=== PATIENT | male | born 1950 | race Caucasian/White ===

== ENCOUNTER → 2018-11-24 14:25 | Outpatient (CLI) | payer MEDICARE, OTHER, SELFPAY ==
--- NOTE | 2018-11-24 14:40 | RAD_ITS ---
STUDY: X-RAY CHEST REASON FOR EXAM: Male, 68 years old. Preop for rotator cuff surgery TECHNIQUE: PA and lateral views of the chest. COMPARISON: None. FINDINGS: The lungs are clear and expanded. There is no demonstrated pleural abnormality. Normal size heart. Normal mediastinum and marianna. Normal visualized pulmonary arteries. There is atherosclerotic tortuosity of the aortic arch and descending thoracic aorta. Normal visualized thoracic spine. Normal visualized ribs, clavicles, and shoulders. There is no demonstrated abnormality of the visualized soft tissue structures of the upper abdomen. RAD/Chest PA and Lateral IMPRESSION: No acute cardiopulmonary process. Electronically Signed: Spenser Harper MD at 11:33 EST , Service support ,
--- NOTE | 2018-11-24 14:43 | EKG12_ITS ---
Test Reason : PRE OP Blood Pressure : / mmHG Vent. Rate : 072 BPM Atrial Rate : 072 BPM P-R Int : 174 ms QRS Dur : 082 ms QT Int : 370 ms P-R-T Axes : 069 077 080 degrees QTc Int : 405 ms Normal sinus rhythm ST abnormality, possible digitalis effect Abnormal ECG When compared with ECG of 26-JUL-2009 17:59, No significant change was found Confirmed by MINAL AKHTAR, FUAD ([id number]), content editor DEREK PAGAN ([id number] on 11/28/2018 12:57:45 PM Referred By: Avelino Pagan Confirmed By:FUAD FONTAINE MD
== END ==
PROVIDERS: Family Provider Internal Medicine; PCP Internal Medicine; Referring Provider Orthopaedic Surgery; Visit Provider Orthopaedic Surgery
DX: Z01.818 Encounter for other preprocedural examination (principal); F17.200 Nicotine dependence, unspecified, uncomplicated; Z79.899 Other long term (current) drug therapy
CPT/HCPCS: 71046; 93005

== ENCOUNTER → 2019-07-06 09:10 | Outpatient (CLI) | payer MEDICARE, OTHER, SELFPAY ==
[2019-07-06 12:55] LABS: PSA,Total- Diagnostic 0.08 ng/mL (0.0-4.0)
== END ==
DX: C61 Malignant neoplasm of prostate (principal)
CPT/HCPCS: 36415; 84153; G0103

== ENCOUNTER 2019-10-24 18:29 | Emergency (ER) | payer MEDICARE, OTHER, SELFPAY ==
[2019-10-24 18:29] VITALS: BP 141/81; PULSE 79; RESP 16; TEMP 36.6; O2SAT 93; BMI 35.4
[2019-10-24 18:47] VITALS: BMI 35.4
[2019-10-24 18:51] LABS: Bedside Glucose 175 mg/dL (70-110)
[2019-10-24 19:26] LABS: Absolute Lymphocyte Count 1.41 X10^3/uL (0.83-4.51); Absolute Neutrophil Count 3.6 X10^3/uL (2.0-7.7); Basophil# 0.03 X10^3/uL; Basophil% 0.5 % (0-1); Eosinophil# 0.33 X10^3/uL; Eosinophils% 5.5 % (0-5); Hemoglobin 16.4 g/dL (13.0-16.5); Lymphocyte # 1.41 X10^3/ul (4.0); Lymphocyte % 23.6 % (19-41); Mean Corp Hgb Conc 33.5 g/dL (32-36); Mean Corpuscular Hgb 34.3 pg (27.0-32.0); Mean Corpuscular Volume 102.5 fL (80-94); Monocyte# 0.62 X10^3/uL; Monocyte% 10.4 % (0-10); NRBC Flagged by Analyzer 0.3 % (0-5); Neutrophil # 3.56 X10^3/uL (2.7-7.7); Neutrophil % 59.7 % (47-70); Platelet Count 144 K/mm3 (150-450); RBC Distribution Width CV 12.6 % (11.6-14.6); RBC Distribution Width SD 47.8 fl (35.1-43.9); Red Blood Count 4.78 M/mm3 (4.6-6.2)
--- NOTE | 2019-10-24 19:40 | RAD_ITS ---
STUDY: X-RAY CHEST REASON FOR EXAM: Male, 69 years old. COUGHING WITH DIFFICULTY SWALLOWING X 1 MONTH TECHNIQUE: PA and lateral views of the chest. COMPARISON: Previous study of 11/24/2018 FINDINGS: There is fullness of the infrahilar region on the lateral view. There is no demonstrated pleural abnormality. Normal size heart. Normal mediastinum and marianna. Normal visualized pulmonary arteries. There are calcified plaques of the aortic arch. Normal visualized thoracic spine. Normal visualized ribs, clavicles, and shoulders. There is no demonstrated abnormality of the visualized soft tissue structures of the upper abdomen. RAD/Chest PA and Lateral IMPRESSION: There is fullness of the infrahilar region on the lateral projection, new in the interval. Calcified plaques of the aortic arch. CT of the thorax with intravenous contrast is recommended for further evaluation at this time. Electronically Signed: Kilo Joshua MD at 20:02 EST , Service support ,
[2019-10-24 19:43] LABS: ALB/GLOB Ratio 0.9 RATIO (0.9-2.4); AST(SGOT) 41 U/L (15-37); Alanine Aminotransfer ALT/SGPT 89 U/L (16-61); Albumin, Serum 3.2 g/dL (3.2-5.0); Alkaline Phosphatase 78 U/L (45-117); Anion Gap 4 (5-15); BUN 19 mg/dL (7-18); BUN/Creat Ratio 14.4 RATIO (10-20); Calcium,Total 8.9 mg/dL (8.5-10.1); Chloride 108 mmol/L (98-107); Creatinine, Serum 1.32 mg/dL (0.70-1.30); EST Glomerular Filtration Rate 57 mL/min (>60); Est Glom Filt Rate - Afr Amer 69 mL/min (>60); Estimated Creatinine Clearance 58.85 ml/min; Globulin 3.6 g/dL (2.2-4.2); Glucose 152 mg/dL (74-106); Potassium 3.9 mmol/L (3.5-5.1); Protein, Total 6.8 g/dL (6.4-8.2); Sodium Level 141 mmol/L (136-145)
--- NOTE | 2019-10-24 19:44 | ED.DCSUM_ITS ---
History of Present Illness Chief Complaint: Neuro S/Sx Detail of Chief Complaint: Abnormal movement of arms and legs during choking episode Informant: Patient, Significant Other Onset: Weeks Context: Sudden Onset Timing: Intermittent Quality: Episode of choking 2 to 3 weeks ago and today Location: Residence Current Severity: - - Symptoms resolved Maximum Severity: Moderate Worsened by: No history of TIA or CVA no change in voice Relieved by: Nothing Associated Symptoms: No associated symptoms Narrative: Patient is an elderly male with history of hypercholesterolemia who presents with choking episode 2 to 3 weeks ago and today. There is no history of TIA or CVA. He denies headache. He denies visual, ocular auditory symptoms. He denies neck pain or neck stiffness. He denies cardiac respiratory symptoms. W hector states last evening he had coughing and complained of shortness of breath. believes he has had more episodes than he is admitting to. He denies paresthesia, anesthesia or motor weakness. He denies problems with balance. Prior similar symptoms: No Recent Illness/Hospitalization: No - Past Medical History (1) Hypercholesterolemia Status: Acute Past Medical History - Allergies and Home Meds Allergies/Adverse Reactions: Allergies No Known Allergies Allergy (Verified 10/24/19 18:33) Primary Care Physician: Alvaro Herron MD [Primary Care Provider] - Prior records reviewed: Yes Surgical History: no surgical history Lives: Spouse/ Significant Other Smoking Status: Current every day smoker Alcohol: Rare Drugs: None Review of Systems General: Denies: Chills, Fever, Sweats Eyes: Denies: Visual changes - bilaterally, Blurred Vision - bilaterally, Diplopia ENT: Denies: Bilateral ear pain, Rhinorrhea, Sore throat Cardiovascular: Denies: Chest pain, Palpitations Respiratory: Denies: Dyspnea, Cough, Dyspnea on exertion Gastrointestinal: Denies: Abdominal pain, Nausea, Vomiting, Diarrhea, Melena, Hematochezia Genitourinary: Denies: Dysuria, Hematuria, Frequency Musculoskeletal: Denies: Myalgias, Arthralgias, Neck pain, Back pain, Swelling, Extremity Pain Skin: Denies: Rash, Wounds Neurological: Denies: Headache, Weakness, Parasthesia, Numbness Hematologic: Denies: Easy bruising, Easy bleeding Physical Exam Vital Signs/Narrative: Vital Signs Temp Pulse Resp BP Pulse Ox 10/24/19 18:29 97.8 F 79 16 141/81 H 93 Inital Vital Signs reviewed: Yes General: Well nourished, Well developed, Obese, No Acute Distress Head: Normocephalic, Atraumatic Eyes: Perrl, EOMI. Negative for: Pale conjunctiva, Scleral icterus ENT: Moist mucous membranes, No rhinorrhea, TM's clear, - - Ray is midline. There is no inspiratory expiratory stridor.. Negative for: Nasal congestion Neck: Supple, Nontender Cardiovascular: Regular rate, Regular rhythm, No murmurs, Normal S1, Normal S2 Respiratory: No distress, CTA bilaterally, Chest nontender Abdomen: Soft, Nontender, Nondistended, Normal bowel sounds Back: Nontender, Normal Inspection Extremities: Nontender, No edema Skin: Normal color, No rash Neurological: Alert, Oriented x3, Cranial nerves II-XII grossly intact, Normal Strength, Normal Sensation, Normal DTR, Normal Gait Psychological: Normal affect, Normal Mood Diagnostic/Tx/Re-eval Chest X-Ray - ED: 2 View, Read by Radiologist Impressions Chest X-Ray 10/24/19 19:40 IMPRESSION: There is fullness of the infrahilar region on the lateral projection, new in the interval. Calcified plaques of the aortic arch. CT of the thorax with intravenous contrast is recommended for further evaluation at this time. Electronically Signed: Kilo Joshua MD at 20:02 EST , Service support , Chest CT 10/24/19 20:41 IMPRESSION: 1. Mild emphysematous changes of the upper lobes. Small calcified granuloma in the left upper lobe. 2. Coronary arterial calcified lesions are present. 3. Mild dilatation of the main pulmonary artery measuring up to 3.2 cm. This may be associated with pulmonary hypertension. 4. Aneurysmal dilatation of the thoracic aorta as detailed above. 5. There is no evidence of mass or adenopathy. 6. The visualized esophagus is unremarkable. Endoscopy and/or barium contrast imaging may be helpful if clinically indicated. Electronically Signed: Kilo Joshua MD at 21:28 EST , Service support , 10/24/19 19:40 Chest PA and Lateral [RAD] Stat 10/24/19 20:41 Chest WITH Contrast [CT] Stat Laboratory Results 10/24/19 10/24/19 10/24/19 18:44 19:16 19:16 WBC 6.0 RBC 4.78 Hgb 16.4 Hct 49.0 MCV 102.5 H MCH 34.3 H MCHC 33.5 RDW Std Deviation 47.8 H RDW Coeff of Virgilio 12.6 Plt Count 144 L MPV 10.0 Immature Gran % (Auto) 0.300 Neut % (Auto) 59.7 Lymph % (Auto) 23.6 Cannon % (Auto) 10.4 H Eos % (Auto) 5.5 H Baso % (Auto) 0.5 Absolute Neuts (auto) 3.6 Absolute Lymphs (auto) 1.41 Nucleated RBC % 0.3 Sodium 141 Potassium 3.9 Chloride 108 H Carbon Dioxide 29.0 Anion Gap 4 L BUN 19 H Creatinine 1.32 H Estim Creat Clear Calc 58.85 Est GFR (MDRD) Af Amer 69 Est GFR (MDRD) Non-Af 57 L BUN/Creatinine Ratio 14.4 Glucose 152 H Calcium 8.9 Total Bilirubin 0.30 AST 41 H ALT 89 H Alkaline Phosphatase 78 Total Protein 6.8 Albumin 3.2 Globulin 3.6 Albumin/Globulin Ratio 0.9 POC Glucose 175 H There was concern for a infrahilar mass on chest x-ray. Radiologist recommended CT with contrast. CT with contrast was obtained and reveals a dilated pulmo nary artery that measures 3.2 cm. There is a a sending 4.6 cm thoracic aneurysm and a descending 3.0 cm aneurysm. There is no evidence of dissection. There is no mass or lymphoma noted. Patient was instructed follow-up with his doctor for an outpatient swallow evaluation and to contact his cardiothoracic surgeon. - Medical Decision Making With recent episodes of choking and complaint of cough and shortness of breath chest x-ray was obtained to assess for aspiration. Baseline blood work was ordered. was informed if work-up is negative he will need to follow-up with his primary care provider to have outpatient evaluation to determine if there is a problem with his swallowing mechanism. ED Disposition - Plan for ED Patient: Disposition: Home or Assisted Living Diagnosis: Difficulty swallowing, Thoracic aortic aneurysm without rupture Referrals: Alvaro Herron MD [Primary Care Provider] - 3-5 Days Additional Instructions: You need to call your primary care doctor for outpatient testing to evaluate your swallowing and need to follow-up with your vascular surgeon regarding the aneurysms that were noted.
--- NOTE | 2019-10-24 20:41 | CT_ITS ---
STUDY: CT CHEST WITH CONTRAST REASON FOR EXAM: Male, 69 years old. DIFFICULTY SWALLOWING, HILAR MASS. Fullness of infrahilar region on lateral CXR earlier today. Hx of prostate cancer RADIATION DOSAGE (If Supplied By Facility): CTDIvol = ( 17.90 ) mGy, DLP = ( 741.37 ) mGycm TECHNIQUE: Transaxial imaging was performed following intravenous administration of IV 100mL Isovue-370. Individualized dose optimization techniques were used for this CT. COMPARISON: Previous study of 12/05/2015 FINDINGS: There are mild emphysematous changes of the upper lobes. There is a calcified granuloma of the left upper lobe. There is no demonstrated pleural abnormality. The heart size is within normal limits. There is no pericardial effusion. Coronary arterial calcifications are present. Normal mediastinum. Normal hilar regions. The main pulmonary artery measures up to 3.2 cm in diameter. There is mild aneurysmal dilatation of the descending thoracic aorta measuring up to 3.0 cm. There is aneurysmal dilatation of the ascending thoracic aorta measuring up to 4.6 cm at the level of the aortic root. Normal osseous structures. There is no demonstrated abnormality of the visualized upper abdomen. CT/Chest WITH Contrast IMPRESSION: 1. Mild emphysematous changes of the upper lobes. Small calcified granuloma in the left upper lobe. 2. Coronary arterial calcified lesions are present. 3. Mild dilatation of the main pulmonary artery measuring up to 3.2 cm. This may be associated with pulmonary hypertension. 4. Aneurysmal dilatation of the thoracic aorta as detailed above. 5. There is no evidence of mass or adenopathy. 6. The visualized esophagus is unremarkable. Endoscopy and/or barium contrast imaging may be helpful if clinically indicated. Electronically Signed: Kilo Joshua MD at 21:28 EST , Service support ,
[2019-10-24 22:22] VITALS: BP 136/72; PULSE 70; RESP 18; O2SAT 99
== END 2019-10-24 22:22 | disposition home or self-care (01) ==
PROVIDERS: Emergency Provider Emergency Medicine
DX: R13.10 Dysphagia, unspecified (principal); I71.2 Thoracic aortic aneurysm, without rupture; E78.00 Pure hypercholesterolemia, unspecified; E66.9 Obesity, unspecified; F17.200 Nicotine dependence, unspecified, uncomplicated; Z68.35 Body mass index [BMI] 35.0-35.9, adult
CPT/HCPCS: 71046; 71260; 80053; 82962; 85025; 99283; Q9967; A4216

== ENCOUNTER → 2022-08-31 | Outpatient (CLI) | payer MEDICARE, OTHER, SELFPAY ==
--- NOTE | 2022-08-31 12:38 | CT_ITS ---
STUDY: LOW DOSE CT LUNG CANCER SCREENING REASON FOR EXAM: Male, 72 years old. Lung cancer screening -- 50 pk yr hx; current smoker; asymptomatic RADIATION DOSAGE (If Supplied By Facility): CTDIvol = ( 4.02 ) mGy, DLP = ( 147.98 ) mGycm TECHNIQUE: No contrast was administered. Low dose technique was utilized (average mAS-38 and kVp 120). 1.25 mm axial source images with a slice interval of 1.25-mm were reconstructed in lung windows. 2.5 mm axial source images with a slice interval of 2.5-mm were reconstructed in lung windows. 5.0 mm axial source images with a slice interval of 5.0-mm were reconstructed in soft tissue windows. COMPARISON: Comparison is made with prior study dated 10/24/2019. NODULES: No suspicious nodules are seen. Emphysema: Mild degree of emphysematous changes more prominent in the upper lobes. Small bulla are seen in the posterior medial aspect of the right upper lobe. Mild scarring in the anterior medial aspect of the right middle lobe as well as the lingular segment of the left upper lobe. Endobronchial lesion: None Aorta: Atherosclerotic plaque formation in the aortic arch. Stable dilatation of the ascending thoracic aorta with a transverse dimension of 45 mm. CORONARY ARTERIES: Coronary artery calcification is seen. Heart: Unremarkable Pulmonary artery: Unremarkable. Mediastinal nodes: Small benign-appearing mediastinal lymph nodes. Other chest and abdominal findings: CT/Low Dose CT Lung Screening IMPRESSION: Lung-RADS category 2 - Continue annual screening with LDCT in 12 months. IMPORTANT NOTES FOR USE: ACR Lung-RADS Version 1.1 Assessment Categories Release Date: 2018 Category: Coded 0-4 bases on nodule(s) with highest degree of suspicion. Negative screen is defined as categories 1 and 2; a positive screen is defined as categories 3 and 4. Category 3 and 4A nodules that are unchanged on interval CT should be coded as category 2, and individuals returned to screening in 12 months. Category 4X: Category 3 or 4 nodules with additional imaging findings that increase the suspicion of lung cancer, such as spiculation, GGN that doubles in size in 1 year, enlarged lymph notes, etc. Category Modifiers: S (significant finding unrelated to lung cancer) Electronically Signed: Cruzito Ochoa MD at 14:01 EST ,
== END | disposition home or self-care (01) ==
LOC: CT 12:37
PROVIDERS: PCP Nurse Practitioner Family; Referring Provider Nurse Practitioner Family; Visit Provider Nurse Practitioner Family
DX: Z87.891 Personal history of nicotine dependence (principal); Z12.2 Encounter for screening for malignant neoplasm of respiratory organs
CPT/HCPCS: 71271

== ENCOUNTER → 2023-09-06 | Outpatient (CLI) | payer MEDICARE, OTHER, SELFPAY ==
--- NOTE | 2023-09-06 12:27 | CT_ITS ---
STUDY: LOW DOSE CT LUNG CANCER SCREENING REASON FOR EXAM: Male, 73 years old. Lung cancer screening -- and gt;20 pk yr hx; current smoker;asymptomatic RADIATION DOSAGE (If Supplied By Facility): CTDIvol = ( 4.02 ) mGy, DLP = ( 138.43 ) mGycm TECHNIQUE: No contrast was administered. Low dose technique was utilized (average mAS-38 and kVp 120). 1.25 mm axial source images with a slice interval of 1.25-mm were reconstructed in lung windows. 2.5 mm axial source images with a slice interval of 2.5-mm were reconstructed in lung windows. 5.0 mm axial source images with a slice interval of 5.0-mm were reconstructed in soft tissue windows. COMPARISON: Comparison is made with prior examination of August 31, 2022. NODULES: No suspicious nodules are seen. Emphysema: Mild degree of emphysematous changes more prominent on the upper lobes. Small bulla are once again seen in the posteromedial aspect of the right upper lobe. Mild scarring in the anterior medial aspect of the right middle as well as the lingular segment of the left upper lobe. Endobronchial lesion: None Aorta: Atherosclerotic plaque formation of the aortic arch. Stable dilatation of the ascending thoracic aorta with a transverse dimension of 45 mm. CORONARY ARTERIES: Coronary artery calcification is seen. Heart: Unremarkable Pulmonary artery: Unremarkable Mediastinal nodes: Small benign-appearing mediastinal lymph nodes. Other chest and abdominal findings: CT/Low Dose CT Lung Screening IMPRESSION: Lung-RADS category 2 - Continue annual screening with LDCT in 12 months. IMPORTANT NOTES FOR USE: ACR Lung-RADS Version 1.1 Assessment Categories Release Date: 2018 Category: Coded 0-4 bases on nodule(s) with highest degree of suspicion. Negative screen is defined as categories 1 and 2; a positive screen is defined as categories 3 and 4. Category 3 and 4A nodules that are unchanged on interval CT should be coded as category 2, and individuals returned to screening in 12 months. Category 4X: Category 3 or 4 nodules with additional imaging findings that increase the suspicion of lung cancer, such as spiculation, GGN that doubles in size in 1 year, enlarged lymph notes, etc. Category Modifiers: S (significant finding unrelated to lung cancer) Electronically Signed: Cruzito Ochoa MD at 13:29 EST ,
== END | disposition home or self-care (01) ==
LOC: CT 12:27
PROVIDERS: PCP Nurse Practitioner Family; Referring Provider Nurse Practitioner Family; Visit Provider Nurse Practitioner Family
DX: Z12.2 Encounter for screening for malignant neoplasm of respiratory organs (principal); Z87.891 Personal history of nicotine dependence
CPT/HCPCS: 71271

== ENCOUNTER → 2024-09-11 | Outpatient (CLI) | payer MEDICARE, OTHER, SELFPAY ==
--- NOTE | 2024-09-11 12:25 | CT_ITS ---
STUDY: LOW DOSE CT LUNG CANCER SCREENING REASON FOR EXAM: Male, 74 years old. Lung cancer screening -- 52 pk yr hx;current smoker;asymptomatic RADIATION DOSAGE (If Supplied By Facility): CTDIvol = ( 3.02 ) mGy, DLP = ( 109.85 ) mGycm TECHNIQUE: No contrast was administered. Low dose technique was utilized (average mAS-38 and kVp 120). 1.25 mm axial source images with a slice interval of 1.25-mm were reconstructed in lung windows. 2.5 mm axial source images with a slice interval of 2.5-mm were reconstructed in lung windows. 5.0 mm axial source images with a slice interval of 5.0-mm were reconstructed in soft tissue windows. COMPARISON: Comparison is made with prior study dated September 06, 2023. NODULES: No suspicious nodules are seen. Emphysema: Stable mild emphysematous changes more prominent in the upper lobes. Small bulla once again seen in the posterior aspect of the right upper lobe. Scarring at the lung bases. Endobronchial lesion: None Aorta: Atherosclerotic plaque formation of the aortic arch. Stable dilatation of the ascending thoracic aorta. CORONARY ARTERIES: Coronary artery calcification is seen. Heart: Unremarkable Pulmonary artery: Unremarkable Mediastinal nodes: Small mediastinal lymph nodes. Other chest and abdominal findings: CT/Low Dose CT Lung Screening IMPRESSION: Lung-RADS category 2 - Continue annual screening with LDCT in 12 months. IMPORTANT NOTES FOR USE: ACR Lung-RADS Version 1.1 Assessment Categories Release Date: 2018 Category: Coded 0-4 bases on nodule(s) with highest degree of suspicion. Negative screen is defined as categories 1 and 2; a positive screen is defined as categories 3 and 4. Category 3 and 4A nodules that are unchanged on interval CT should be coded as category 2, and individuals returned to screening in 12 months. Category 4X: Category 3 or 4 nodules with additional imaging findings that increase the suspicion of lung cancer, such as spiculation, GGN that doubles in size in 1 year, enlarged lymph notes, etc. Category Modifiers: S (significant finding unrelated to lung cancer) Electronically Signed: Cruzito Ochoa MD at 13:08 EST ,
== END | disposition home or self-care (01) ==
LOC: CT 12:24
PROVIDERS: PCP Nurse Practitioner Family; Referring Provider Nurse Practitioner Family; Visit Provider Nurse Practitioner Family
DX: Z12.2 Encounter for screening for malignant neoplasm of respiratory organs (principal); Z87.891 Personal history of nicotine dependence
CPT/HCPCS: 71271

== ENCOUNTER → 2024-12-18 | Outpatient (CLI) | payer MEDICARE, OTHER, SELFPAY ==
--- NOTE | 2024-12-18 16:50 | CT_ITS ---
EXAM: CTA chest CLINICAL HISTORY: Aortic aneurysm COMPARISON: 10/24/2019 and 09/11/2024 TECHNIQUE: CTA of the chest with coronal and sagittal and MIP reformatted images FINDINGS: Ascending thoracic aorta 4.5 cm Aortic arch 3.2 cm Descending thoracic aorta 3.3 cm Aorta not significantly changed in size since 2019. Calcific and soft atherosclerotic plaque formation again noted at the arch and descending thoracic aorta. This is mildly more prominent/increased since the 2019 study in the descending thoracic aorta axial 94, 76 and 47. No dissection. Standard three-vessel arch with some atherosclerotic changes at the right brachiocephalic, proximal right subclavian and left subclavian arteries. Left main and three-vessel coronary calcification appears [id number] LAD and diagonal. No pericardial or pleural effusion. Limited images of the upper abdomen appear within limits. No large saddle or central, hilar pulmonary embolism. The central airways appear patent. Mild bilateral central bronchial wall thickening suggested, possible bronchitis. Dependent basilar atelectasis. No focal consolidation. Mild emphysematous change again noted. Platelike scar right middle lobe. Calcified granuloma left upper lobe. Lower cervical spondylosis/discogenic change. Right shoulder osteoarthrosis. CT/CTA Chest W/WO Contrast IMPRESSION: Fusiform dilation of the ascending thoracic aorta as above no significant inter darek change in size since 2019. Calcific and soft atherosclerotic plaque formation again noted at the arch and descending thoracic aorta. This is mildly more prominent/increased since the 2019 study in the descending thoracic aorta axial 94, 76 and 47. No dissection. Left main and three-vessel coronary calcification appears [id number] LA D and diagonal. Mild bilateral central bronchial wall thickening suggested, possible bronchitis . Reading Location: [id number]
[2024-12-18 17:03] LABS: Absolute Lymphocyte Count 2.18 X10^3/uL (0.83-4.51); Absolute Neutrophil Count 4.2 X10^3/uL (2.0-7.7); Basophil# 0.05 X10^3/uL; Basophil% 0.7 % (0-1); Eosinophil# 0.19 X10^3/uL; Eosinophils% 2.6 % (0-5); Hemoglobin 16.7 g/dL (13.0-16.5); Lymphocyte # 2.18 X10^3/ul (0.83-4.51); Lymphocyte % 29.5 % (19-41); Mean Corp Hgb Conc 34.1 g/dL (32-36); Mean Corpuscular Hgb 34.6 pg (27.0-32.0); Mean Corpuscular Volume 101.4 fL (80-94); Mean Platelet Vol. 10.6 fl (6.2-12.0); Monocyte# 0.79 X10^3/uL; Monocyte% 10.7 % (0-10); NRBC Flagged by Analyzer 0 % (0-5); Neutrophil # 4.16 X10^3/uL (2.7-7.7); Neutrophil % 56.2 % (47-70); Platelet Count 174 K/mm3 (150-450); RBC Distribution Width CV 12.5 % (11.6-14.6); RBC Distribution Width SD 46.9 fl (35.1-43.9); Red Blood Count 4.83 M/mm3 (4.6-6.2); White Blood Count 7.4 K/mm3 (4.4-11.0)
== END | disposition home or self-care (01) ==
PROVIDERS: PCP Nurse Practitioner Family; Referring Provider Internal Medicine Hematology & Oncology; Visit Provider Nurse Practitioner Family
DX: D75.1 Secondary polycythemia (principal); I71.9 Aortic aneurysm of unspecified site, without rupture
CPT/HCPCS: 36415; 71275; 85025; Q9967; A4216

== ENCOUNTER → 2025-01-24 | Outpatient (CLI) | payer MEDICARE, OTHER, SELFPAY ==
--- NOTE | 2025-01-24 14:50 | STRESSREP ---
Stress Test Report Exercise myocardial perfusion stress test. 75-year-old male with a history of coronary artery calcification Stress protocol: Resting EKG demonstrates normal sinus rhythm with a rate of 61 bpm resting blood pressure is 116/68 mmHg. The patient exercised according to the regular Man[facility] protocol for a total duration of 3 minutes attaining a maximum heart rate of 122 bpm which was 84% of maximum predicted heart rate; the maximum workload was 4.9 metabolic equivalents. At rest there were no ST or T wave changes noted to suggest ischemia and at peak exercise upsloping ST changes only were noted which did not meet the criteria for ischemia. No clinical angina was noted the test was terminated due to the target heart rate being achieved/fatigue. The peak blood pressure was 156/70 mmHg. Rate-pressure product was 17,300. Myocardial perfusion protocol. 10.7 mCi of technetium 99m sestamibi was injected at rest. The patient exercised according to regular Manish protocol for total duration of 3 minutes and at peak exercise 33.5 mCi of technetium 99m sestamibi was injected stress images were obtained stress and rest images were reconstructed in comparing the short axis vertical long and horizontal long axis. Gated images were also obtained. Perfusion SPECT analysis: Review of the stress images demonstrate normal uptake of tracer noted in all areas of the myocardium. The resting images similarly demonstrate normal uptake of tracer noted in all areas of the myocardium. No areas of reversibility are noted to suggest ischemia no previous infarct was noted. Gated SPECT analysis: The gated ejection fraction is 73%. Conclusion: Normal exercise myocardial perfusion stress test at a low workload Preserved ejection fraction.
== END | disposition home or self-care (01) ==
LOC: CVS 06:39
PROVIDERS: PCP Nurse Practitioner Family; Referring Provider Nurse Practitioner Family; Visit Provider Nurse Practitioner Family
DX: I25.10 Atherosclerotic heart disease of native coronary artery without angina pectoris (principal)
CPT/HCPCS: 78452; 93017; A9500; A4216

== ENCOUNTER 2025-04-26 10:59 | Day surgery (SDC) | payer MEDICARE, OTHER, SELFPAY ==
--- NOTE | 2025-04-18 11:57 | EKG12_ITS ---
Test Reason : PRE OP Blood Pressure : */* mmHG Vent. Rate : 65 BPM Atrial Rate : 65 BPM P-R Int : 184 ms QRS Dur : 92 ms QT Int : 396 ms P-R-T Axes : 53 62 67 degrees QTcB Int : 411 ms Normal sinus rhythm Septal infarct , age undetermined Abnormal ECG Confirmed by CONRAD AKHTAR, TONYA ([id number]), editorial cartoonist SHIRLEY IRIZARRY ([id number]) on 04/19/2025 1:19:16 PM Referred By: Robbie Yañez Confirmed By: TONYA MARTINES MD
[2025-04-18 12:56] LABS: Hematocrit 47.3 % (40-54); Hemoglobin 16.0 g/dL (13.0-16.5); Mean Corp Hgb Conc 33.8 g/dL (32-36); Mean Corpuscular Volume 102.6 fL (80-94); Mean Platelet Vol. 11.0 fl (6.2-12.0); Platelet Count 158 K/mm3 (150-450); RBC Distribution Width CV 12.8 % (11.6-14.6); RBC Distribution Width SD 48.5 fl (35.1-43.9); Red Blood Count 4.61 M/mm3 (4.6-6.2); White Blood Count 7.1 K/mm3 (4.4-11.0)
[2025-04-18 13:25] LABS: Anion Gap 10 (5-15); BUN 19 mg/dL (4-19); BUN/Creat Ratio 22.0 RATIO (10-20); Calcium,Total 9.1 mg/dL (7.6-11.0); Carbon Dioxide 25.4 mmol/L (21.0-32.0); Chloride 105 mmol/L (98-108); Glucose 120 mg/dL (70-99); Potassium 3.9 mmol/L (3.3-5.1)
--- NOTE | 2025-04-18 15:51 | PAT.ANE_ITS ---
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 When Was Last Pacemaker Check QUESTION #4 FULL TEXT: You/Your Family Experience fever (hyperthermia) with Anesthesia Last Oral Intake Last Oral intake: Last Oral Intake NPO since Meds taken in AM with sips of water? Meds patient instructed to take am of surgery PONV PONV - event crew technician: PONV - event crew technician Female No 04/17/25 11:25 HX of Motion Sickness No 04/17/25 11:25 HX of N/V After Surgery No 04/17/25 11:25 Non-Smoker Yes 04/17/25 11:25 Duration of Surgery greater Yes 04/17/25 11:25 than 60 minutes Number of Risk Factors 2 04/17/25 11:25 PONV Score Moderate Risk 04/17/25 11:25 Height & Weight Height & Weight: Anesthesia: Height & Weight Height 6 ft 1 in 09/11/24 11:48 Respiratory Assessment Respiratory Assessment - event crew technician: Respiratory Tract Infection Hx - event crew technician Hx Respiratory Tract Infection No 04/17/25 11:25 STOP Sleep Apnea STOP Sleep Apnea - event crew technician: STOP Sleep Apnea - event crew technician Hx Hypertension No 04/17/25 11:25 Hx Sleep Apnea Yes 04/17/25 11:25 CPAP No 04/17/25 11:25 BIPAP Yes 04/17/25 11:25 Do you snore loudly (louder than talking or can be heard Do you often feel tired/ fatigued/ sleepy during daytime? Has anyone observed you stop breathing during sleep? STOP Results Positive 04/17/25 11:25 QUESTION #5 FULL TEXT : Do you snore loudly (louder than talking or can be heard through closed doors)? 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 Specify any problems Hx of Preganancy in last 3 N/A 04/17/25 11:25 Months Nurse Filling Out Transfusion VCHRISTIN 04/17/25 11:25 & Questions: Date: 04/17/25 04/17/25 11:25 Time: 11:29 04/17/25 11:25 Patient unable to answer at this time (ie. confused, unrespo /Reproduction History /Reproductive History - event crew technician: /Reproductive Hx- event crew technician Hx Now No 04/17/25 11:25 Gestational Age (in weeks): EDC: Hx Hx Para Hx Section SAB No 04/17/25 11:25 [facility] Medical History (Updated 04/17/25 @ 12:12 by Mary Ann Covington) TIA (transient ischemic attack) Alzheimer disease Wears hearing aid Wears dentures Cancer Open wound History of steroid therapy Arthritis Kidney stones High cholesterol Back pain Syncope On home oxygen therapy BiPAP (biphasic positive airway pressure) dependence Sleep apnea Smoker Chronic cough History of stress test Cardiology follow-up encounter Thoracic aortic aneurysm Macrocytosis without anemia Tobacco use Encounter for screening for malignant neoplasm of lung in current smoker with 30 pack year history or greater Polycythemia H/O diagnostic mammography Subarachnoid hemorrhage History of prostate cancer History of colon cancer BPH without urinary obstruction Hypersomnia Aneurysm, aortic Vitamin D deficiency COPD without exacerbation Increased BMI Anemia, macrocytic Impaired fasting glucose Hyperlipemia Home Medications ?Medication ?Instructions ?Recorded ?Last Taken ?Type albuterol sulfate 90 mcg/actuation 2 puff inhalation Q 6H PRN 08/09/22 Unknown History aerosol inhaler (ProAir HFA) shortness of breath or wh eezing coQ10 (ubiquinol) 200 mg capsule 200 mg PO DAILY 08/10 Unknown History (CoQmax Ubiquinol) ergocalciferol (vitamin D2) 1,250 1,250 mcg PO QMONTH 08/10/22 Unknown History mcg (50,000 unit) capsule aspirin 325 mg tablet 325 mg PO DAILY 08/11/23 History memantine 10 mg tablet 10 mg PO BID 04/17/25 Unknow n History qxjonmikviqo-bynisstc-sngsam 1 tab PO DAILY 04/17/25 U nknown History tablet (A Thru Z High Potency tablet) omega 0-zlp-gyz-fish oil 1,200 mg 2 cap PO BID 5 04/17/25 History (144 mg-216 mg) capsule (Fish Oil) Allergy/AdvReac Type Severity Reaction Status Date / Time levofloxacin (From Levaquin) Allergy Mild Itching Verified 04/17/25 11:09 Family History Mother Colon cancer CVA (cerebral vascular accident) Glaucoma Father Diabetes Sister Diabetes Surgical History (Updated 04/17/25 @ 11:25 by Mary Ann Covington) History of back surgery Hx of repair of right rotator cuff History of shoulder surgery S/P colon resection S/P hernia repair History of AAA (abdominal aortic aneurysm) repair Social History (Updated 09/11/24 @ 11:52 by Kimberly Bhatti) household members: spouse current occupational status: 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 Some days does not smoke a all, other days may smoke 1/2 pack. Audit: Pertinent Findings Pertinent Findings EKG Perinent findings: 04/18/2025: Normal sinus rhythm with septal infarct of undetermined age that is new from 11/24/2018 Stress test pertinent findings: 01/24/2025: Normal exercise myocardial perfusion stress test at a low workload. Preserved ejection fraction. Recommendation Anesthesia Recommendation Anesthesia recommendation: OPTIMIZED for anesthesia
[2025-04-26] VITALS (15 sets, daily range): BP systolic 80–114; BP diastolic 49–69; PULSE 50–59; RESP 14–18; TEMP 36.1–36.6; O2SAT 93–99; BMI 32.4
--- NOTE | 2025-04-26 06:59 | PCM.HP.STD ---
HPI - General General Date of Service: 04/26/25 Chief Complaint: Bladder tumor HPI Narrative YAKOV RAYGOZA, is a 75 M who presents for resection of a bladder tumor redo transurethral section of bladder tumor and instillation of Mitomycin-[facility] Medical History (Updated 04/17/25 @ 12:12 by Mary Ann Covington) TIA (transient ischemic attack) Alzheimer disease Wears hearing aid Wears dentures Cancer Open wound History of steroid therapy Arthritis Kidney stones High cholesterol Back pain Syncope On home oxygen therapy BiPAP (biphasic positive airway pressure) dependence Sleep apnea Smoker Chronic cough History of stress test Cardiology follow-up encounter Thoracic aortic aneurysm Macrocytosis without anemia Tobacco use Encounter for screening for malignant neoplasm of lung in current smoker with 30 pack year history or greater Polycythemia H/O diagnostic mammography Subarachnoid hemorrhage History of prostate cancer History of colon cancer BPH without urinary obstruction Hypersomnia Aneurysm, aortic Vitamin D deficiency COPD without exacerbation Increased BMI Anemia, macrocytic Impaired fasting glucose Hyperlipemia Home Medications ?Medication ?Instructions ?Recorded ?Last Taken ?Type albuterol sulfate 90 mcg/actuation 2 puff inhalation Q6H PRN 08/09/22 Unknown History aerosol inhaler (ProAir HFA) shortness of breath or wheezing coQ10 (ubiquinol) 200 mg capsule 200 mg PO DAILY 08/10/22 Unknown History (CoQmax Ubiquinol) ergocalciferol (vitamin D2) 1,250 1,250 mcg PO QMONTH 08/10/22 Unknown History mcg (50,000 unit) capsule aspirin 325 mg tablet 325 mg PO DAILY 08/11/23 04/15/25 History memantine 10 mg tablet 10 mg PO BID 04/17/25 Unknown History kdarsyzmcxmy-ortqqsgi-zxlabi 1 tab PO DAILY 04/17/25 Unknown History tablet (A Thru Z High Potency tablet) omega 4-dqr-ncj-fish oil 1,200 mg 2 cap PO BID 04/17/25 04/17/25 History (144 mg-216 mg) capsule (Fish Oil) Allergy/AdvReac Type Severity Reaction Status Date / Time levofloxacin (From Levaquin) Allergy Mild Itching Verified 04/17/25 11:09 Family History Mother Colon cancer CVA (cerebral vascular accident) Glaucoma Father Diabetes Sister Diabetes Surgical History (Updated 04/17/25 @ 11:25 by Mary Ann Covington) History of back surgery Hx of repair of right rotator cuff History of shoulder surgery S/P colon resection S/P hernia repair History of AAA (abdominal aortic aneurysm) repair Social History (Updated 09/11/24 @ 11:52 by Kimberly Bhatti) household members: spouse current occupational status: 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 Some days does not smoke a all, other days may smoke 1/2 pack. Results Lab / Micro Data 04/18/25 11:55 04/18/25 11:55
[2025-04-26] MEDS: Lactated Ringers 1,000 ML 15 ML IV (11:34)
--- NOTE | 2025-04-26 12:18 | PRE.ANES_ITS ---
ASA Classification* ASA Classification ASA Classification: 3 Assessment & Plan Anesthesia* Anesthesia Assessment Anesthesia Assessment: Discussed sedation and/or anesthesia options, risks, benefits, and alternatives with patient/parents/legal guardian/POA. Questions invited. The patient/parents/legal guardian/POA seems to understand and agrees to proceed with anesthesia plan. Reviewed the physical assessment, medical history, allergy history and patient home medications list prior to surgery/procedure/anesthetic and documented any changes. Performed airway and anesthesia risk assessments. Anesthesia Type Anesthesia Type: General History Source History Obtained from:: Patient and Chart Anesthesia Focused Assessment* Temperature: 97.8 F Pulse Rate: 58 Blood Pressure: 114/69 Respiratory Rate: 18 Pulse Ox: 96 Oxygen Delivery Method: Room Air Airway Assessment Mouth opens: >3 cm Mallampati Score: IV Teeth Condition: Dentures (Patient has full upper and lower dentures.) Neck Range of motion (ROM): Full ROM Labs Anesthesia Preop lab: CBC WBC 7.1 K/mm3 (4.4-11.0) 04/18/25 11:55 04/18/25 RBC 4.61 M/mm3 (4.6-6.2) 04/18/25 11:55 04/18/25 Hgb 16.0 g/dL (13.0-16.5) 04/18/25 11:55 04/18/25 Hct 47.3 % (40-54) 04/18/25 11:55 04/18/25 Plt Count 158 K/mm3 (150-450) 04/18/25 11:55 04/18/25 CHEMISTRY Potassium 3.9 mmol/L (3.3-5.1) 04/18/25 11:55 04/18/25 Sodium 141 mmol/L (133-145) 04/18/25 11:55 04/18/25 BUN 19 mg/dL (4-19) 04/18/25 11:55 04/18/25 Creatinine 0.86 mg/dL (0.70-1.20) 04/18/25 11:55 04/18/25 Glucose 120 mg/dL (70-99) H 04/18/25 11:55 04/18/25 POC Glucose 175 mg/dL (70-110) H 10/24/19 18:44 10/24/19 COAG Pre-Assessment Diagnosis/Proposed Procedure Planned Operative Procedure(s): Cysto,[facility] Anesthesia History 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 When Was Last Pacemaker Check QUESTION #4 FULL TEXT: You/Your Family Experience fever (hyperthermia) with Anesthesia Last Oral Intake Last Oral intake: Last Oral Intake NPO since 00:00 04/26/25 11:35 Meds taken in AM with sips of No 04/26/25 11:35 water? Meds patient instructed to take am of surgery PONV PONV - cabinetmaker helper: PONV - cabinetmaker helper Female No 04/17/25 11:25 HX of Motion Sickness No 04/17/25 11:25 HX of N/V After Surgery No 04/17/25 11:25 Non-Smoker Yes 04/17/25 11:25 Duration of Surgery greater Yes 04/17/25 11:25 than 60 minutes Number of Risk Factors 2 04/17/25 11:25 PONV Score Moderate Risk 04/17/25 11:25 Height & Weight Height & Weight: Anesthesia: Height & Weight Height 6 ft 1 in 04/26/25 11:35 Weight: 111.6 kg 04/26/25 11:35 Body Mass Index (BMI) 32.4 04/26/25 11:35 Respiratory Assessment Respiratory Assessment - cabinetmaker helper: Respiratory Tract Infection Hx - cabinetmaker helper Hx Respiratory Tract Infection No 04/17/25 11:25 STOP Sleep Apnea STOP Sleep Apnea - cabinetmaker helper: STOP Sleep Apnea - cabinetmaker helper Hx Hypertension No 04/17/25 11:25 Hx Sleep Apnea Yes 04/17/25 11:25 CPAP No 07/23/25 11:25 BIPAP Yes 04/17/25 11:25 Do you snore loudly (louder than talking or can be heard Do you often feel tired/ fatigued/ sleepy during daytime? Has anyone observed you stop breathing during sleep? STOP Results Positive 04/17/25 11:25 QUESTION #5 FULL TEXT : Do you snore loudly (louder than talking or can be heard through closed doors)? 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 Specify any problems Hx of Preganancy in last 3 N/A 04/17/25 11:25 Months Nurse Filling Out Transfusion VCHRISTIN 04/17/25 11:25 & Questions: Date: 04/17/25 04/17/25 11:25 Time: 11:29 04/17/25 11:25 Patient unable to answer at this time (ie. confused, unrespo /Reproduction History /Reproductive History - cabinetmaker helper: /Reproductive Hx- cabinetmaker helper Hx Now No 04/17/25 11:25 Gestational Age (in weeks): EDC: Hx Hx Para Hx Section SAB No 04/17/25 11:25 Active Medications Active Medications: Current Medications Generic Name Dose Route Start Last Admin Trade Name Freq PRN Reason Stop Dose Admin Cefazolin Sodium 2 gm/ Sodium 110 mls @ 200 mls/hr 04/26/25 13:00 Chloride IV 04/26/25 13:32 INTRAOP ONE Mitomycin 40 mg/ N/A 40 mls @ 2,400 mls/hr 04/26/25 13:00 INSTILLAT 04/26/25 13:01 X1 ONE Lactated Ringer's 1,000 mls @ 15 mls/hr 04/26/25 11:15 04/26/25 11:34 IV 15 mls/hr .Q48H SHELLY Administration PFSH Medical History TIA (transient ischemic attack) Alzheimer disease Wears hearing aid Wears dentures Cancer Open wound History of steroid therapy Arthritis Kidney stones High cholesterol Back pain Syncope On home oxygen therapy BiPAP (biphasic positive airway pressure) dependence Sleep apnea Smoker Chronic cough History of stress test Cardiology follow-up encounter Thoracic aortic aneurysm Macrocytosis without anemia Tobacco use Encounter for screening for malignant neoplasm of lung in current smoker with 30 pack year history or greater Polycythemia H/O diagnostic mammography Subarachnoid hemorrhage History of prostate cancer History of colon cancer BPH without urinary obstruction Hypersomnia Aneurysm, aortic Vitamin D deficiency COPD without exacerbation Increased BMI Anemia, macrocytic Impaired fasting glucose Hyperlipemia Home Medications ?Medication ?Instructions ?Recorded ?Last Taken ?Type albuterol sulfate 90 mcg/actuation 2 puff inhalation Q 6H PRN 08/09/22 Unknown History aerosol inhaler (ProAir HFA) shortness of breath or wh eezing coQ10 (ubiquinol) 200 mg capsule 200 mg PO DAILY 08/1004/25/25 History (CoQmax Ubiquinol) ergocalciferol (vitamin D2) 1,250 1,250 mcg PO QMONTH 08/10/22 04/25/25 History mcg (50,000 unit) capsule aspirin 325 mg tablet 325 mg PO DAILY 08/11/23 History memantine 10 mg tablet 10 mg PO BID 04/17/25 Unknow n History ucgpoarvqwfg-ittgsflp-dwglih 1 tab PO DAILY 04/17/25 0 04/25/25 History tablet (A Thru Z High Potency tablet) omega 1-bok-kfe-fish oil 1,200 mg 2 cap PO BID 5 04/17/25 History (144 mg-216 mg) capsule (Fish Oil) Allergy/AdvReac Type Severity Reaction Status Date / Time levofloxacin (From Levaquin) Allergy Mild Itching Verified 04/26/25 11:33 Family History Mother Colon cancer CVA (cerebral vascular accident) Glaucoma Father Diabetes Sister Diabetes Surgical History History of back surgery Hx of repair of right rotator cuff History of shoulder surgery S/P colon resection S/P hernia repair History of AAA (abdominal aortic aneurysm) repair Social History household members: spouse current occupational status: retired 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 Some days does not smoke a all, other days may smoke 1/2 pack. Review of Systems (Anesthesia) ROS Narrative System reviewed and no additional complaints, except as documented. Physical Exam Resp Auscultation: wheezes expiratory wheezes (Will give the patient a DuoNeb breathing treatment prior to going back to the OR.) and inspiratory wheezes
--- NOTE | 2025-04-26 12:51 | PCM.DC ---
Discharge Instructions DC O2, CPAP, BIPAP needs Home O2 Discharge instructions: No Dressing / Incision Discharge Activity: Return to Normal Activity and May Not Drive (while taking narcotic pain medications.) Dressing / Incision Call your doctor if you observe: Fever of 101 or Higher Follow Up Care Please Follow Up With: Robbie Yañez MD When: Call [phone] for an appointment Test Results: Test results from this visit will be discussed in further detail at your follow-up appointment, if applicable. Discharge Plan Admission Primary Reason for Your Visit: resection of bladder tumor Attending Provider: Robbie Yañez Primary Care Provider: Alvaro Espinoza NP Instructions Print Language: Nigerian Discharge Orders/Prescriptions Prescriptions: New cephalexin 500 mg capsule 500 mg PO TID Qty: 15 0RF oxycodone 5 mg tablet 5 mg PO Q6H PRN (Reason: pain) 7 Days Qty: 14 0RF Continued albuterol sulfate [ProAir HFA] 90 mcg/actuation HFA aerosol inhaler 2 puff inhalation Q6H PRN (Reason: shortness of breath or wheezing) ergocalciferol (vitamin D2) 1,250 mcg (50,000 unit) capsule 1,250 mcg PO QMONTH CoQmax Ubiquinol 200 mg capsule 200 mg PO DAILY memantine 10 mg tablet 10 mg PO BID A Thru Z High Potency Tablet 1 tab PO DAILY omega 6-lny-zia-fish oil [Fish Oil] 1,200 (144-216) mg capsule 2 cap PO BID Held aspirin 325 mg tablet 325 mg PO DAILY Hold Instructions: Resume on 05/10/25. Referrals / Follow Up: Robbie Yañez MD [Med Staff - Active Staff] - Alvaro Espinoza NP, COMPUTING ARCHITECT-C [Primary Care Provider] - Disposition Disposition (needs filled in before D/C Order can be placed): Home, Self Care
--- NOTE | 2025-04-26 13:00 | BLA_PTH ---
PATIENT: YAKOV RAYGOZA LOC: [facility] U#:[id number] AGE/SX: 75/M ROOM: RE04/26/[address]: Dr. Robbie Yañez MD : 1950 BED: DIS: 04/26/2025 SPEC #: [id number] RECD: 04/26/25 14:10 STATUS: TANIA REQ #: [id number] SANDIE: 04/26/25 13:[address]: Robbie Yañez DEPT: SURGICAL PATHOLOGY RECD BY: Dwight Barreto ENTERED: 04/26/25 15:03 SP TYPE: BLADDER BX OTHR DR: Alvaro Espinoza, STRUCTURAL LAYOUT WORKER-C Tissues: A - Urinary bladder, NOS Procedures: Immunohistochemical Stains Surgery Specimen Level IV IHC Stain ADDITIONAL HEADER OPERATION: Cysto, transurethral resection bladder PRE-OP DIAGNOSIS: Bladder tumor TISSUE SUBMITTED: A- Bladder tumor MICROSCOPIC DIAGNOSIS A. Bladder, tumor, transurethral resection: - High grade urothelial carcinoma, non-invasive - see note. - Lamina propria not involved. - Muscularis propria not identified. Note: IHC performed. The tumor cells are diffusely positive for GATA3 and focally positive for p40. CK5/6 is negative. These findings support the diagnosis. MICROSCOPIC DESCRIPTION Slides are reviewed. All matched controls reacted appropriately. These tests were developed and their performance characteristics determined by [facility]. They may not have been cleared or approved by the U.S. Food and Drug Administration. The FDA has determined that such clearance or approval is not necessary.? The above immunohistochemical/dualISH?markers are reviewed by the Pathologist. GROSS DESCRIPTION A. Received in formalin labeled with the patient's name and date of . Designated as bladder tumor is a 0.6 x 0.5 x 0.3 cm reece-pink to white, firm to rubbery and cauterized tissue fragment admixed with a 1.3 x 0.5 x 0.2 cm aggregate of reece flecks of apparent tissue. Entirely submitted in 1 cassette. [place] 04/26/2025 CPT:[id number]
--- NOTE | 2025-04-26 13:43 | OP.PCM_ITS ---
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 large measuring 5 cm x 5 cm x 1 cm Post-Operative Diagnosis: The same Surgery/Procedure Performed: Transurethral section of a large bladder tumor instillation Mitomycin-C aids social worker: No Type of Anesthesia: General RN Documented Start/Stop Times: Operation Date: 04/26/25 13:00 Case Time Into Pre-Op 04/26/25 11:09 Out of Pre-Op 04/26/25 12:55 Anesthesia Start 04/26/25 12:59 Into Room 04/26/25 12:59 Procedure Start 04/26/25 13:14 Procedure End 04/26/25 13:39 Into Phase II Recovery Procedure Start Time: 13:14 Procedure Stop Time: 13:44 Select all DRAINS/GRAFTS/IMPLANTS that apply: Drains Drain details: Ortiz catheter Special Medications: Mitomycin-C instillation Estimated Blood Loss: Minimal Specimen collected: Yes Description of specimen(s) removed: Specimen retrieved for bladder tumor most of the tumor cauterized Description of surgery: This is a 75-year-old male who had been having gross hematuria cystoscopy office demonstrated he had like a carpet looking multifocal red and CIS looking tumor throughout the dome of the bladder quite large measuring the size of the tumor by about 5 cm x 5 cm area by 1 cm deep so today organ to proceed with the resection of this tumor in the operating room Patient is taken back to the operating room after smooth induction of anesthesia he was placed supine on the table he was intubated and paralyzed for the procedure we then pulled him down to the end of the table he was placed in dorsolithotomy position. I then went into the bladder with a 26 [place] continuous-flow bipolar resectoscope to use a large loop upon inspection of the left and right utero orifice were clear of any tumors he had a slightly trabeculated bladder there was a lot of papillary tumors almost like a carpet like tumor up in the dome of the bladder as described above quite large area I then decided just to mostly cauterize his tumor since cutting his tumor would be quite dangerous up in the dome high chance of perforation etc. so I decided just to cauterize get some tissue but cauterize it did not look like to be an invasive tumor look like high-grade but noninvasive on my inspection. I then used a cold loop to swipe to the area to get some tissue this was sent off as a specimen I then switched over to the cauterization and then cauterized the area extensively quite difficult to reach at the push down of the bladder really hard from above the abdomen in order to reach this tumor the golf player assistant at the at the bedside push on the bladder is much as possible to get the tumor in the [id number] quit took some quite effort to get the tumor down but we are able to cauterize the entire area at the end inspected I did not see any other visible tumors I then elect out all the tumors out and then we put a catheter in the bladder instilled 40 cc of 40 mg of Mitomycin-C into the bladder for post instillation dose of treatment patient's bladder was then the catheter was clamped he is taken back to the PACU in stable condition and will unclamp the catheter about an hour and drain and remove the catheter for voiding trial Surgical Findings: Very large tumor like a carpet in the dome of the bladder cauterized completely only a small sample taken because very difficult to reach Complications Complications: No Admit VTE Documentation VTE Present on Admission: No VTE Mechan Device Prophylaxis: SCD's VTE Pharm Prophylaxis ordered?: No
--- NOTE | 2025-04-26 13:57 | PCM.POST.ANE ---
Anesthesia: Postop Eval I Current Vital Signs Temperature: 97.6 F Pulse Rate: 59 Blood Pressure: 95/56 Respiratory Rate: 16 Pulse Ox: 93 Oxygen Delivery Method: Nasal Cannula Oxygen Flow Rate (L/min): 4 Assessment Airway patent: Yes Spontaneous unlabored respirations: Yes Mental status: Awake and Calm nausea: No Vomiting: No Anesthesia Complication: No Fluid Hydration Crystalloid volume administer (ml): 300 Total IV fluid infused: 300 Progress Note Anesthesia document: Postop Eval 1 completed: Yes
--- NOTE | 2025-04-26 15:35 | SUR.PHASEII ---
THIS RN CALLED TO BEDSIDE BY DAUGHTER DUE TO PATIENT GOING IN AND OUT AND WANTED PULSE CHECK. PT SITTING ON BEDSIDE TRYING TO URINATE STARING. PULSE OX AT TIME 92% HR 52 AND BP 91/60. THIS RN WITH HELPED PATIENT LAY BACK IN BED. 4L OXYGEN APPLIED AND DR Pena CALLED. NEW BAG OF FLUIDS HUNG AND PROOFREADER APPLIED. PRIMARY NURSE ARTEMIO MADE AWARE.
--- NOTE | 2025-04-26 15:39 | POSTOPAN2_ITS ---
Anesthesia Postop Eval I Sum Postop Eval Completion status Anesthesia document: Postop Eval 1 completed: Yes Anesthesia Postop Eval I Summary Anesthesia Postop Eval I Summary: Anesthesia Postop Eval I: Assessment Summary Airway patent Yes 04/26/25 13:58 STAFF AIR TACTICAL [email or web address] Spontaneous unlabored Yes 04/26/25 13:58 STAFF AIR TACTICAL OFFICER.[email or web address] respirations Mental status Awake,Calm 04/26/25 13:58 STAFF AIR TACTICAL OFFICER.[email or web address] nausea No 04/26/25 13:58 STAFF AIR TACTICAL OFFICER.JDEF Vomiting No 04/26/25 13:58 STAFF AIR TACTICAL OFFICER.JDEF Anesthesia Postop Eval I: Fluid Summary Crystalloid volume administer 300 04/26/25 13:58 STAFF AIR TACTICAL OFFICER.JDEF (ml) Colloids volume administered ( ml) Blood Product volume administered (ml) Total IV fluid infused 300 04/26/25 13:58 STAFF AIR TACTICAL OFFICER.JDEF Anesthesia Postop Eval I: Summary Notes Anesthesia Complication No 04/26/25 13:58 STAFF AIR TACTICAL OFFICER.JDEF Anesthesia Complication Comment: Post-operative progress note Anesthesia: Postop Eval II Evaluation Mental status: Awake Pain Level: 2 nausea: No Vomiting: No
--- NOTE | 2025-04-26 15:39 | PCM.POSTANE2 ---
Anesthesia Postop Eval I Sum Postop Eval Completion status Anesthesia document: Postop Eval 1 completed: Yes Anesthesia Postop Eval I Summary Anesthesia Postop Eval I Summary: Anesthesia Postop Eval I: Assessment Summary Airway patent Yes 04/26/25 13:58 HEALTHCARE ADVISORY SERVICES MANAGER.[email or web address] Spontaneous unlabored Yes 04/26/25 13:58 HEALTHCARE ADVISORY SERVICES MANAGER.JDEF respirations Mental status Awake,Calm 04/26/25 13:58 HEALTHCARE ADVISORY SERVICES MANAGER.JDEF nausea No 04/26/25 13:58 HEALTHCARE ADVISORY SERVICES MANAGER.JDEF Vomiting No 04/26/25 13:58 HEALTHCARE ADVISORY SERVICES MANAGER.JDEF Anesthesia Postop Eval I: Fluid Summary Crystalloid volume administer 300 04/26/25 13:58 HEALTHCARE ADVISORY SERVICES MANAGER.JDEF (ml) Colloids volume administered ( ml) Blood Product volume administered (ml) Total IV fluid infused 300 04/26/25 13:58 HEALTHCARE ADVISORY SERVICES MANAGER.JDEF Anesthesia Postop Eval I: Summary Notes Anesthesia Complication No 04/26/25 13:58 HEALTHCARE ADVISORY SERVICES MANAGER.JDEF Anesthesia Complication Comment: Post-operative progress note Anesthesia: Postop Eval II Evaluation Mental status: Awake Pain Level: 2 nausea: No Vomiting: No
== END 2025-04-26 16:55 | disposition home or self-care (01) ==
LOC: SDC 11:01 → AC 11:01
PROVIDERS: Anesthesiology; PCP Nurse Practitioner Family; Referring Provider Urology; Visit Provider Urology
PROC: 0T5B8ZZ Destruction of Bladder, Via Natural or Artificial Opening Endoscopic (ICD-10-PCS; CPT 51720; principal; 2025-04-26 12:50)
DX: C67.1 Malignant neoplasm of dome of bladder (principal); G30.9 Alzheimer's disease, unspecified; F02.80 Dementia in other diseases classified elsewhere, unspecified severity, without behavioral disturbance, psychotic disturbance, mood disturbance, and anxiety; J44.9 Chronic obstructive pulmonary disease, unspecified; E55.9 Vitamin D deficiency, unspecified; E78.00 Pure hypercholesterolemia, unspecified; G47.30 Sleep apnea, unspecified; F17.210 Nicotine dependence, cigarettes, uncomplicated; Z85.46 Personal history of malignant neoplasm of prostate; Z86.73 Personal history of transient ischemic attack (TIA), and cerebral infarction without residual deficits; Z85.038 Personal history of other malignant neoplasm of large intestine; Z90.49 Acquired absence of other specified parts of digestive tract; Z79.82 Long term (current) use of aspirin; Z79.899 Other long term (current) drug therapy
CPT/HCPCS: 52240; 00912; 36415; 80048; 85027; 88305; 88341; 88342; 93005; 94640; J9280; J2405

== ENCOUNTER → 2025-08-14 | Outpatient (CLI) | payer MEDICARE, OTHER, SELFPAY | END | disposition home or self-care (01) | PROVIDERS: PCP Nurse Practitioner Family; Referring Provider Urology; Visit Provider Urology | DX: N39.0 Urinary tract infection, site not specified (principal) | CPT/HCPCS: 87077; 87086; 87088 ==

== ENCOUNTER → 2025-09-17 | Outpatient (CLI) | payer MEDICARE, OTHER, SELFPAY ==
--- NOTE | 2025-09-17 14:21 | CT_ITS ---
PROCEDURE: LOW DOSE CT LUNG SCREENING 09/17/2025 REASON FOR EXAM: LUNG CANCER SCREENING TECHNIQUE: Procedure Code: [id number] Modality: CT Procedure: LOW DOSE CT LUNG SCREENING Coronal and Sagittal reconstruction series were provided. One or more dose reduction techniques were used (e.g., Automated exposure control, adjustment of the mA and/or kV according to patient size, use of iterative reconstruction technique). REFERENCE LINK: [employer] Lung-RADS RADIATION DOSE SUMMARY: CTDlvol: 3 mGy DLP: 114 mGycm COMPARISON: 12/20/2024. 09/11/2024. FINDINGS: The peripheral soft tissues are unremarkable. No mediastinal suspicious lymphadenopathy. The ascending thoracic aorta measures 4.7 cm in diameter. [id number] atherosclerosis of the aorta. Coronary artery calcifications are present. The heart is normal in size. The upper abdomen is unremarkable. Mild paraseptal emphysema. No suspicious pulmonary nodules. Mild bilateral lower lobe linear bands which may represent atelectasis versus scar. CT/Low Dose CT Lung Screening IMPRESSION: No suspicious pulmonary nodules. Lung-RADS Category 1. Continue annual low dose CT lung cancer screening. Ascending thoracic aortic aneurysm measuring 4.7 cm. Recommend clinical correla tion and dedicated thoracic aortic surveillance per cardiology or vascular guidelines. Mild paraseptal emphysema. Coronary artery calcifications, consistent with coronary artery disease. Mild bilateral lower lobe linear atelectasis versus scarring. Reading Location: [facility]
== END | disposition home or self-care (01) ==
LOC: CT 14:21
PROVIDERS: PCP Nurse Practitioner Family; Referring Provider Nurse Practitioner Family; Visit Provider Nurse Practitioner Family
DX: Z12.2 Encounter for screening for malignant neoplasm of respiratory organs (principal); Z87.891 Personal history of nicotine dependence
CPT/HCPCS: 71271